=== PATIENT | female | born 1985 | race Caucasian/White ===

== ENCOUNTER 2017-12-31 17:15 | Inpatient (IN) | payer OTHER ==
[~2017-12-31] VITALS: Ht 167 cm; Wt 85.3 kg
[2017-12-31 17:36] VITALS: BP 118/75
[2017-12-31] MEDS ORDERED: RINGERS SOLUTION,LACTATED 1,000 ML IV PRN (18:55)
[2017-12-31] MEDS ORDERED: METHYLERGONOVINE MALEATE 0.2 MG/ML VIAL IM PRN (19:00)
[2017-12-31] MEDS ORDERED: CITRIC ACID/SODIUM CITRATE 30 ML SOLUTION UDCUP PO PRN (19:00)
[2017-12-31] MEDS ORDERED: LIDOCAINE HCL/PF 1% 30 ML VIAL INJ PRN (19:00)
[2017-12-31] MEDS ORDERED: METOCLOPRAMIDE HCL 5 MG/ML 2 ML VIAL IVP PRN (19:00)
[2017-12-31 19:22] LABS: BASOPHILS % (AUTO) 0.4 % (0.0-2.0); EOSINOPHILS % (AUTO) 0.5 % (1.0-6.0); HEMATOCRIT 35.2 % (36-46); HEMOGLOBIN 11.8 g/dL (12.0-16.0); LYMPHOCYTES # (AUTO) 1.8 K/uL (1.0-4.8); LYMPHOCYTES % (AUTO) 17.5 % (22.0-44.0); MEAN CORPUSCULAR HGB CONC 33.5 G/dL (31.0-37.0); MEAN CORPUSCULAR VOLUME 84 fL (80-100); MONOCYTES # (AUTO) 0.7 K/uL (0.1-1.0); MONOCYTES % (AUTO) 7.3 % (2.0-9.0); NEUTROPHILS # (AUTO) 7.6 K/uL (1.8-7.7); NEUTROPHILS % (AUTO) 74.3 % (40.0-70.0); PLATELET COUNT (AUTO)-OB 281 K/uL (150-450); RED BLOOD CELL COUNT(AUTO) 4.22 MIL/uL (4.00-5.20); RED CELL DISTRIBUTION WIDTH 14.8 % (11.5-14.5)
[2017-12-31] MEDS ORDERED: DINOPROSTONE 10 MG VAGINAL SUPPOSITORY VG ONE ×2 (19:30→23:15)
[2017-12-31] MEDS: RINGERS SOLUTION,LACTATED 1,000 ML IV SCH (19:59)
[2017-12-31] MEDS ORDERED: OXYGEN THERAPY IH SCH (20:00)
[2018-01-01] MEDS: FentaNYL CITRATE-PF 100 MCG/2 ML VIAL IVP PRN ×2 (01:02→03:38)
[2018-01-01] MEDS: RINGERS SOLUTION,LACTATED 1,000 ML IV SCH (06:25)
[2018-01-01] MEDS ORDERED: ROPIVACAINE HCL/PF 0.2% 100 ML ED ONE (06:33)
[2018-01-01] MEDS ORDERED: RINGERS SOLUTION,LACTATED 1,000 ML IV SCH (06:33)
[2018-01-01] MEDS ORDERED: MISOPROSTOL 100 MCG TABLET ONE (06:36)
[2018-01-01] MEDS ORDERED: MISOPROSTOL 25 MCG TABLET VG ONE (06:45)
[2018-01-01] MEDS ORDERED: OXYTOCIN 30 UNITS/LACT RINGERS 500 ML IV PRN (10:22)
[2018-01-01] MEDS ORDERED: -PHARMACY NOTE- MISC ONE (11:15)
[2018-01-01] MEDS ORDERED: ACETAMINOPHEN/CODEINE 300-30 MG TABLET PO PRN ×2 (13:00)
[2018-01-01] MEDS ORDERED: LANOLIN 7 GM OINTMENT TP PRN (13:00)
[2018-01-01] MEDS ORDERED: BENZOCAINE 20%/MENTHOL 56 GM SPRAY CANISTER TP PRN (13:00)
[2018-01-01] MEDS ORDERED: GLYCERIN/WITCH HAZEL LEAF 40 PADS JAR TP PRN (13:00)
[2018-01-01] MEDS ORDERED: OXYTOCIN 30 UNITS/LACT RINGERS 500 ML IV ONE (15:27)
[2018-01-01] MEDS ORDERED: AMMONIA 1 EA AMP IH ONE (16:09)
[2018-01-01] MEDS: IBUPROFEN 800 MG TABLET PO SCH ×2 (16:24→22:25)
[2018-01-01] MEDS: MAGNESIUM HYDROXIDE SUSPENSION 30 ML UDCUP PO SCH (20:35)
[2018-01-02] MEDS: IBUPROFEN 800 MG TABLET PO SCH ×2 (04:34→10:34)
[2018-01-02] MEDS: MAGNESIUM HYDROXIDE SUSPENSION 30 ML UDCUP PO SCH (08:02)
[2018-01-02] MEDS ORDERED: IBUP-2071 PO (10:53)
[2018-01-02] MEDS ORDERED: DSS100 PO (10:54)
[2018-01-02] MEDS ORDERED: FERR-89 PO (10:55)
[2018-01-02] MEDS ORDERED: PNV11TAB PO (10:55)
[2018-01-02] MEDS ORDERED: IBUP-2070 PO (11:55)
== END 2018-01-02 16:50 | disposition home or self-care (01) | DRG 775 ==
LOC: OBSVTOIN 17:15 → 4S 17:15
PROVIDERS: ADMIT Obstetrics & Gynecology; ATTEND Obstetrics & Gynecology
PROC: 10E0XZZ Delivery of Products of Conception, External Approach (ICD-10-PCS; principal; 2018-01-01)
PROC: 0W8NXZZ Division of Female Perineum, External Approach (ICD-10-PCS; 2018-01-01)
PROC: 3E0R3BZ Introduction of Anesthetic Agent into Spinal Canal, Percutaneous Approach (ICD-10-PCS; 2018-01-01)
PROC: 00HU33Z Insertion of Infusion Device into Spinal Canal, Percutaneous Approach (ICD-10-PCS; 2018-01-01)
DX: O80 Encounter for full-term uncomplicated delivery (principal); Z37.0 Single live birth; Z3A.40 40 weeks gestation of pregnancy
CPT/HCPCS: 86850; 86900; 86901; 89060; J2590; J2795; J3010; J7120